=== PATIENT | female | born 1960 | race Caucasian/White ===

== ENCOUNTER 2022-02-21 05:37 | Day surgery (SDC) | payer OTHER ==
[2022-02-21] MEDS ORDERED: LIDOCAINE HCL/PF 1% SDV 5ML VIAL ONE (07:31)
[2022-02-21] MEDS ORDERED: LIDOCAINE HCL/PF 2% SDV 5ML VIAL ONE (07:49)
[2022-02-21] MEDS ORDERED: LIDOCAINE HCL 1% PRESERVATIVE FREE - 30ML VIAL IJ ONE (09:19)
[2022-02-21 10:19] VITALS: PULSE 60; RESP 18
[2022-02-21 10:38] VITALS: BP 160/90; TEMP 98
== END 2022-02-21 10:39 | disposition home or self-care (01) ==
LOC: JASU-SURG 05:37
PROVIDERS: ATTEND Pain Medicine Pain Medicine
PROC: 01HY3MZ Insertion of Neurostimulator Lead into Peripheral Nerve, Percutaneous Approach (ICD-10-PCS; principal; 2022-02-21 08:30)
DX: G89.4 Chronic pain syndrome (principal)
CPT/HCPCS: 64555; C1778